=== PATIENT | male | born 2000 | race Caucasian/White ===

== ENCOUNTER 2024-01-14 22:12 | Emergency (ER) | payer OTHER ==
[2024-01-14 22:23] VITALS: BP 118/61; PULSE 64; RESP 20; TEMP 98.2; BMI 33.0
[2024-01-14] MEDS ORDERED: AMOX TR/POT CLAV 875MG/125MG TABLETS (FP) ONE (22:54)
[2024-01-14] MEDS: AMOX TR/POT CLAV 875MG/125MG TABLETS (FP) PO ONE (22:55)
== END 2024-01-14 22:58 | disposition home or self-care (01) ==
LOC: JER 22:12 → JERFT 22:12
DX: H66.92 Otitis media, unspecified, left ear (principal); H92.02 Otalgia, left ear
CPT/HCPCS: 99283-25